=== PATIENT | male | born 1990 | race Caucasian/White ===

== ENCOUNTER 2017-06-10 21:49 | Emergency (ER) | payer OTHER ==
[~2017-06-10] VITALS: Ht 154.9 cm; Wt 59.0 kg
--- NOTE | 2017-06-10 22:11 | NUR ---
PT BIB RA WITH A C/O RT ANKLE PAIN S/P FALLING OFF A WALL. PT IS C/O PAIN AND REC'D AN ICE PACK .
[2017-06-10] MEDS ORDERED: IBUPROFEN 400 MG TABLET ONE (22:45)
--- NOTE | 2017-06-10 22:50 | NUR ---
PT REC'D TIA AND ANOTHER ICE PACK
[2017-06-10] MEDS ORDERED: IBUPROFEN 400 MG TABLET PO ONE (23:00)
[2017-06-10] MEDS ORDERED: MORPHINE SULFATE INJ 4 MG/ML DISP.SYRIN ONE (23:07)
[2017-06-10] MEDS ORDERED: MORPHINE SULFATE INJ 2 MG/ML DISP.SYRIN IM ONE (23:30)
[2017-06-10] MEDS ORDERED: ONDANSETRON 4 MG TAB.RAPDIS SL ONE (23:30)
[2017-06-10] MEDS ORDERED: HYDROMORPHONE 1 MG/1 ML DISP.SYRIN ONE ×4 (23:40)
--- NOTE | 2017-06-10 23:44 | NUR ---
PT IS GROANING/CRYING. PT IS 08/31. MORPHINE INJ DID NOT WORK. DR. MEDEROS NOTIFIED.
--- NOTE | 2017-06-11 00:20 | NUR ---
PT IS STILL C/O SEVERE LLE PAIN. PT STATED THAT HE GOT A SMALL AMOUNT OF RELIEF FROM THE MEDICATION, BUT IT'S STILL UMBEARABLE. DR. MEDEROS IS AWARE.
--- NOTE | 2017-06-11 00:22 | NUR ---
NADJA MAN IS PUTTING A SHORT LEG POSTERIOR SPLINT AND AN ULNAR GUTTER SPLINT ON THE RLE.
[2017-06-11] MEDS ORDERED: HYDROMORPHONE 1 MG/1 ML DISP.SYRIN ONE ×2 (00:28→02:04)
[2017-06-11] MEDS ORDERED: HYDROMORPHONE 1 MG/1 ML DISP.SYRIN IM ONE ×3 (00:30→02:00)
--- NOTE | 2017-06-11 00:38 | NUR ---
PT REC'D 4"ORTHO GLASS SHORT LEG POSTERIOR SPLINT WITH ULNAR GUTTER OVER IT.
--- NOTE | 2017-06-11 02:30 | NUR ---
Patient does not wish to proceed with medical care recommended by Dr. MEDEROS. Patient given information related to possible complications, up to and including , which could occur as a result of leaving the hospital at this time. Patient verbalizes understanding of risks involved due to leaving against medical advice. Patient has signed AMA form.
--- NOTE | 2017-06-11 02:34 | NUR ---
PT'S FRIEND IS GETTING PT HOME. PT IS AWARE THAT HE CAN NOT WALK WITH HIS INJURIES.
[2017-06-11 02:55] VITALS: BP 155/93
--- NOTE | 2017-06-11 02:56 | NUR ---
PT LEFT VIA WC TO THE CAR. PT'S FRIEND IS DRIVING PT HOME.
== END 2017-06-11 02:56 | disposition left against medical advice (07) ==
LOC: ER 21:55
DX: S82.892A Other fracture of left lower leg, initial encounter for closed fracture (principal); S82.891A Other fracture of right lower leg, initial encounter for closed fracture; Z53.20 Procedure and treatment not carried out because of patient's decision for unspecified reasons; Z88.0 Allergy status to penicillin; W10.9XXA Fall (on) (from) unspecified stairs and steps, initial encounter; Y93.39 Activity, other involving climbing, rappelling and jumping off; Y92.89 Other specified places as the place of occurrence of the external cause; Y99.8 Other external cause status
CPT/HCPCS: 72125; 72128; 72131; 73610 ×2; 96372 ×4; 99284; A4606; J1170 ×6; J2270; Z7610